=== PATIENT | male | born 1990 | race Caucasian/White ===

== ENCOUNTER 2016-09-24 10:56 | Emergency (ER) ==
--- NOTE | 2016-09-24 11:45 | PROVIDER DOCUMENTATION ---
HPI-Musculoskeletal Pain/Inj - GENERAL Source: patient - HX OF PRESENT ILLNESS-MUSKULOSKELTAL Quality of Pain: reports: aching Severity in ED: mild Onset/Duration: this morning Timing: still present, intermittent Modifying Factors: improves with: nothing Any recent injury?: Yes (fell ) Locality of Occurance: Home Similar Symptoms Previously?: Yes Recently seen or treated by another doctor?: No - FALL INJURY Location of Pain/Injury: reports: hand(s) (R) Pain Radiation: reports: no radiation Reason for Fall: reports: unknown Symptoms prior to fall:: reports: none Loss of Consciousness: no loss of consciousness Injury Associated Symptoms: reports: other (R hand pain) - UPPER EXTREMITY PAIN/INJURY Extremities Pain Location: hand: right (pain ) Context / Method of Injury: reports: fell Associated Symptoms: reports: weakness in upper ext (R hand). denies: muscle spasms, numbness in upper ext, sensory/motor loss, tingling in upper ext <Shi Roberson - Last Filed: 09/24/16 11:41> <Kelvin Mora - Last Filed: 09/24/16 11:59> - GENERAL Chief Complaint: Extremity Injury Stated Complaint: EXTREMITY INJURY Time Seen by Provider: 09/24/16 11:30 - HX OF PRESENT ILLNESS-MUSKULOSKELTAL Nature of Presenting Problem: Pt is 26 y/o M presents to the ED with R hand pain. Pt states fell and landed on hands. Pt denies pain in L hand. Pt denies LOC. (Shi Roberson) Review of Systems - Adult - REVIEW OF SYSTEMS - ADULT Constitutional: denies: chills, fever Eyes: denies: blurred vision, double vision Ears, Nose, Mouth & Throat: denies: ear pain, nose pain, throat pain Cardiovascular: denies: chest pain, heart murmur, irregular heart rate Respiratory: denies: cough, shortness of breath, wheezing Gastrointestinal: denies: abdominal pain, diarrhea, nausea, vomiting Genitourinary: denies: dysuria, hematuria Musculoskeletal: reports: other (R hand). denies: bone pain, joint pain, neck pain Integumentary: denies: hives, itching Neurological: denies: dizziness/vertigo, headache/migraines Psychiatric: reports: no symptoms reported Endocrine: reports: no symptoms reported Hematologic/Lymphatic: reports: no symptoms reported Allergic/Immunologic: reports: no symptoms reported All Other Systems: Reviewed and Negative <DaShi - Last Filed: 09/24/16 11:41> Past History - Adult - PAST MEDICAL HISTORY-ADULT Review of Records: reports: Nursing Assessment Review, Medications Reviewed, Social history reviewed & non-contributory. Major Childhood Illnesses: reports: denies history Cardiovascular: reports: denies history Respiratory: reports: denies history Gastrointestinal: reports: denies history Obstetrical/Gynecological: reports: denies history Genitourinary: reports: denies history Musculoskeletal: reports: denies history Neurological: reports: denies history Endocrine/Immune: reports: denies history Other Conditions: reports: denies history - PRIOR SURGERIES/PROCEDURES Surgical/Procedure History: reports: hernia repair, other (hydrocele) - IMMUNIZATION STATUS Childhood Immunizations: See Nurse Assessment Flu Vaccine: See Nurse Assessment - FAMILY HISTORY Family History: reviewed, not pertinent - SOCIAL HISTORY Smoking: cigarettes, greater than 1 pack/day Provider spent 3-5 mins advising pt. on dangers of tobacco.: Discussed manners to quit use, and f/u contacts for add'l counseling. Substance Use: alcohol, marijuana Alcohol Use Frequency: occasionally Number of drinks per typical drinking period:: 2 drinks Living Situation: family <DaShi - Last Filed: 09/24/16 11:41> Physical Exam-Injury Related - Physical Exam-Injury Related Initial Vital Signs Reviewed: Yes General Appearance: appears well, alert, no apparent distress Eyes: PERRL/EOMI, pink conjunctivae, fundi clear, no AV nicking Head, Ears, Nose, Mouth & Throat: normocephalic/atraumatic, moist mucous membranes, normal ENT inspection, TMs normal, pharynx normal Neck: non-tender, full range of motion, supple, normal inspection Respiratory: chest non-tender, lungs clear, normal breath sounds, no pleuratic chest pain, no respiratory distress, no accessory muscle use Cardiovascular: normal peripheral pulses, regular rate, rhythm, no edema, no gallop, no JVD, no murmur Abdominal Exam: normal bowel sounds, non tender, soft, no organomegaly, no pulsatile mass Lymphatic: no adenopathy Back Exam: normal inspection, no CVA tenderness, no vertebral tenderness Extremity: normal gait, no pedal edema, no calf tenderness, erythema (R hand), swelling (R hand), tenderness (R hand) Integumentary: normal color, warm/dry, erythema (R hand), abrasion (R hand) 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, grossly normal, no motor/sensory deficits Psych/Mental Status: normal mood/affect, normal thought content, normal thought process, oriented x 3 <Shi Roberson - Last Filed: 09/24/16 11:41> Progress <Shi Roberson - Last Filed: 09/24/16 11:41> - XRAY 1 XRAY: Right XRAY Study: Hand XRAY Interpretation: boxer's fx <Kelvin Mora - Last Filed: 09/24/16 11:59> - PLAN OF CARE/RESULTS Progress/Plan/Lab Results: Orders Category Date Time Status OCL Splint DIRECTED Care 09/24/16 11:58 Active HAND COMPLETE RIGHT [RAD] Stat Exams 09/24/16 11:04 Taken Hydrocodone/APAP 7.5 mg/325 mg [Morris-7.5] Med 09/24/16 11:58 Once 1 each PO NOW ONE Ondansetron Odt [Zofran Odt] Med 09/24/16 11:58 Once 4 mg PO NOW ONE Vital Signs Temp Pulse Resp BP Pulse Ox 09/24/16 10:59 97.8 F 76 18 139/89 100 No Known Allergies Allergy (Verified 11/19/14 18:02) No Home Medications 12/20/13 (Kelvin Mora) Departure <Shi Roberson - Last Filed: 09/24/16 11:41> - Departure Time of Disposition Order: 11:59 Certified Medical Emergency: Urgent <Kelvin Mora - Last Filed: 09/24/16 11:59> - Departure DIAGNOSIS: Boxers fracture Qualifiers: Encounter type: initial encounter Fracture type: closed Qualified Code(s): S62.309A - Unspecified fracture of unspecified metacarpal bone, initial encounter for closed fracture Disposition: HOME 01 Condition: Good Additional Instructions: Take medication as prescribed. Follow up with an orthopedist. ED Follow Up Instructions: You have been treated by a care provider in the Emergency Department. These instructions are being provided to you so you can have an understanding of how to care for yourself upon discharge. Upon discharge from the Emergency Department, you are responsible for making arrangements for follow-up care by a physician of your choice. Take all prescribed medications as directed. Return to the Emergency Department immediately for any new or worsening symptoms. You may call the Physician Referral phone number at [phone] to obtain a list of Physicians who are taking new patients. Prescriptions: Hydrocodone/APAP 7.5 mg/325 mg [Morris-7.5] 1 each PO Q6H PRN PRN #12 tablet PRN Reason: Pain Ondansetron Odt [Zofran 4 mg Odt] 4 mg PO Q6H PRN PRN #20 tablet PRN Reason: Nausea Referrals: Josette Case MD [Primary Care Provider] - Frank Navarro MD [STAFF PHYSICIAN] - Attestation - Scribe Verification/Attestation Scribe:: Shi Roberson Acting as Scribe for:: Kelvin Mora Scribe documention review:: This chart was documented by a scribe and accurately reflects the service the provider performed and the decisions made by the provider. <Shi Roberson - Last Filed: 09/24/16 11:41> - Physician/ KASHMIR Attestation Patient care was provided by Advanced Practice Provider:: Yes Advanced Practice Provider:: Kelvin Mora Advanced Practice Provider documentation review:: The Mid-level provider documentation, treatment plan and medical decision making was reviewed by the physician who agrees with all treatment and medical decision making by the P. <Kelvin Mora - Last Filed: 09/24/16 11:59> Physician Attestation
[2016-09-24] MEDS ORDERED: NORCO-7.5 PO ONE (11:58)
[2016-09-24] MEDS ORDERED: ZOFRAN ODT PO ONE (11:58)
[2016-09-24 12:35] VITALS: BP 129/87
--- NOTE | 2016-09-24 13:31 | Diag Imaging Result Document ---
PROCEDURE NAME: HAND COMPLETE RIGHT - 09/24/2016 RIGHT HAND, 3 VIEWS: FINDINGS: There is a fracture of the distal 5th metacarpal with impaction and ventral angulation of the distal fragment. There is no other fracture or dislocation identified. IMPRESSION: Fracture of distal 5th metacarpal with impaction and ventral angulation of the distal fragment.
== END 2016-09-24 12:38 | disposition home or self-care (01) ==
LOC: P.ED 10:56
DX: S62.396A Other fracture of fifth metacarpal bone, right hand, initial encounter for closed fracture (principal); S60.511A Abrasion of right hand, initial encounter; M79.641 Pain in right hand; M62.81 Muscle weakness (generalized); L53.9 Erythematous condition, unspecified; R22.31 Localized swelling, mass and lump, right upper limb; F17.210 Nicotine dependence, cigarettes, uncomplicated; Z71.6 Tobacco abuse counseling; W19.XXXA Unspecified fall, initial encounter
CPT/HCPCS: 99283